=== PATIENT | female | born 1960 | race Caucasian/White ===

== ENCOUNTER → 2021-11-28 09:45 | Outpatient (BNVA) | payer OTHER, SELFPAY | PROVIDERS: Family Provider Nurse Practitioner; PCP Nurse Practitioner Family; Visit Provider Nurse Practitioner Family | DX: L50.8 Other urticaria (principal) | CPT/HCPCS: 86003; 86008 ==

== ENCOUNTER → 2022-03-03 08:13 | Outpatient (BNVA) | payer OTHER, SELFPAY | PROVIDERS: Family Provider Nurse Practitioner; PCP Nurse Practitioner Family; Visit Provider Nurse Practitioner Family | DX: L50.8 Other urticaria (principal); L50.9 Urticaria, unspecified | CPT/HCPCS: 80053; 82785; 85025; 85651; 86003; 86141 ==